=== PATIENT | male | born 1980 | race Caucasian/White ===

== ENCOUNTER 2024-09-21 08:56 | Emergency (ER) | payer OTHER, SELFPAY ==
[2024-09-21 09:02] VITALS: BP 118/69; PULSE 63; RESP 13; TEMP 36.8; O2SAT 100
--- NOTE | 2024-09-21 10:14 | ED.EYEPROB ---
HPI - Eye Problem General Chief complaint: Eye Problems Stated complaint: eye problem Time Seen by Provider: 09/21/24 09:27 Source: patient Mode of arrival: ambulatory Limitations: no limitations History of Present Illness HPI Narrative: Patient presents the emergency department for left eye redness and irritation. Ongoing over the last couple of weeks. Worsening the last couple of days to where he is having blurry vision. He does wear glasses. He has been using dry eye drops with little relief. Denies fevers, abnormal drainage. Related Data Allergies Allergy/AdvReac Type Severity Reaction Status Date / Time No Known Allergies Allergy Unverified 08/13/20 08:31 Review of Systems Review of Systems: CONSTITUTIONAL: Denies fever EYES: Reports visual changes, redness, and tearing All systems reviewed & are unremarkable except as noted in HPI and below PMFSH Past Medical History Medical History (Updated 09/21/24 @ 10:40 by Catherine Pederson PA-C) No active medical problems Social History Social History (System 08/13/20 @ 08:31 by Deana Robledo) Alcohol intake: never Exam Narrative: GENERAL: Well-appearing, well-nourished, and in no acute distress. HEAD: Normocephalic, atraumatic. EYES: PERRLA and EOMI. Conjunctival injection and tearing in the left eye. no eyelid edema, erythema. No abnormal drainage. No fluorescein stain uptake. Eye pressure in the right 18, on the left 17. Visual acuity on the right 20/30, on the left 20/200. EXTREMITIES: Normal range of motion. No edema. SKIN: Warm, dry, no rash. NEURO: No focal deficits. Alert and oriented x3. PSYCH: Normal mood and affect Course Course Emergency Course: Patient agrees with plan of care Consultations Consultation #1: Spoke with ophthalmology, Dr. Parra, about patient and workup. They can follow-up with patient in clinic at 1:00 p.m. Date: 09/21/24 Vital Signs Vital signs: Vital Signs Temperature 98.2 F 09/21/24 09:02 Pulse Rate 63 09/21/24 09:02 Respiratory Rate 13 09/21/24 09:02 Blood Pressure 118/69 09/21/24 09:02 Pulse Oximetry 100 09/21/24 09:02 Oxygen Delivery Room Air 09/21/24 09:02 Temperature 98.2 F 09/21/24 09:02 Pulse Rate 63 09/21/24 09:02 Respiratory Rate 13 09/21/24 09:02 Blood Pressure 118/69 09/21/24 09:02 Pulse Oximetry 100 09/21/24 09:02 Oxygen Delivery Room Air 09/21/24 09:02 MDM - Eye Problem MDM Narrative Medical decision making narrative: patient presents to the emergency department for left eye redness, tearing, blurry vision. Onset a couple of weeks ago. He is afebrile and nontoxic appearing. Conjunctival injection and tearing noted in the affected eye. Eye pressures are normal. No foreign bodies noted. No fluorescein stain uptake exam. His vision is 20/200 in the affected eye, 20/30 in the good eye. Spoke with ophthalmology, Dr. Parra, about patient and workup. They can follow-up with patient in clinic at 1:00 p.m. Differential Diagnosis Differential diagnosis: Likely corneal abrasion, conjunctivitis, acute iritis and other (foreign body) Critical Care Time Critical Care Time Critical Care Time: No Discharge Plan Discharge Clinical Impression: Blurred vision, left eye Patient Disposition: Home, Self-Care Condition: Stable Instructions: Blurred Vision (ED) Additional Instructions: You have an appointment with [facility] ophthalmology at 1:00 p.m. today for further evaluation [address] [facility] Follow-up/Referrals: Kyree Barksdale MD [Primary Care Provider] -
== END 2024-09-21 11:10 | disposition home or self-care (01) ==
PROVIDERS: Emergency Provider Physician Assistant; PCP Emergency Medicine
DX: H53.8 Other visual disturbances (principal)
CPT/HCPCS: 99283; A9270